=== PATIENT | male | born 1935 | race Caucasian/White ===

== ENCOUNTER 2021-04-13 23:22 | Emergency (ER) | payer MEDICARE, SELFPAY ==
[2021-04-13 23:39] VITALS: BP 130/74; PULSE 86; O2SAT 94
[2021-04-13 23:41] VITALS: BP 118/55; PULSE 79; RESP 16; TEMP 36.6; O2SAT 96; BMI 52.0
--- NOTE | 2021-04-13 23:52 | ED_ITS ---
HPI - Psych General Chief Complaint: Psychiatric Symptoms Stated Complaint: snf SI attempt Time Seen by Provider: 04/13/21 23:42 Source: patient and EMS Mode of arrival: EMS Limitations: no limitations History of Present Illness HPI Narrative: Patient is brought to emergency room from a facility, the staff reports that the patient tried hanging himself. According to the staff, he reported to EMS that the patient was found with his bed blankets wrapped around his neck. 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 Related Data Allergies Allergy/AdvReac Type Severity Reaction Status Date / Time No Known Allergies Allergy Verified 04/13/21 23:58 Review of Systems Review of Systems: Constitutional : Denies fever ENT/Mouth : Chronic swallowing difficulty Eyes: Legally blind Cardiovascular : No Chest Pain, No SOB Respiratory : No cough Gastrointestinal : No vomiting or diarrhea Genitourinary : No dysuria Musculoskeletal : No joint pain Skin : No Skin Lesions, No rash Neuro : No headache Psych : Denies suicidal attempt Heme/Lymph: No lymphadenopathy Endocrine : No Polyuria, No Polydipsia Physical Exam Const: Other: Appearance: Alert. No acute distress Eyes: Legally blind, unable to see ENT: Pharynx normal. Dry oral mucosa Neck: Normal inspection. Neck supple. No lymph nodes noted. No crepitus CVS: Normal heart rate and rhythm. Pulses normal. Normal S1 and S2 Respiratory: No respiratory distress. Breath sounds normal. No Wheezing. No rales Abdomen: Soft and nontender. No rigidity. No distention. Skin: Skin warm and dry. Extremities: Moves all extremities Neuro: Cranial nerves 2-12 grossly intact Course Course Course Narrative: Patient denies suicidal ideation. It is unlikely that the patient should be taking back by the facility without lab [facility] consult pending. Physician observation started at 23:[address] Rodrigues Discharge Plan Discharge Clinical Impression: Behavioral change
--- NOTE | 2021-04-14 00:54 | PC.NURSE ---
Pt transferred from [facility] to [place] [address]. Sitter at bedside. Pt calm/cooperative, Covid swab obtained. Pt requesting water and an additional pillow, provided with such. Pt resting in POC, aware of plan for N eval.
[2021-04-14 01:07] LABS: COVID-19 Test Negative (Negative)
--- NOTE | 2021-04-14 08:56 | PC.NURSE ---
pt woken up for N consult, stating he needs something to drink. Given orange juice and coffee, pt did not like that it was nectar thick. Pt educated that thats what his ordered diet is d/t swallowing issues. Pt then replied why dont you just leave me alone . Drinks at bedside if pt changes his mind.
--- NOTE | 2021-04-14 11:11 | PC.NURSE ---
pt cleared by N. Family and caregiver state they want placement in a new skilled nursing. CM working on case.
--- NOTE | 2021-04-14 11:21 | PHA.MEDREC ---
Pharmacy Consult ? Medication Reconciliation Pharmacy has completed the medication reconciliation. Per Sagar butts, patient has not started testosterone yet. Thanks Jovani Perkins
--- NOTE | 2021-04-14 12:33 | MHC.CM.ED ---
Received notification from Stephany SWENSON, that patient's pearl diver, Nabila is requesting to speak to case management. Met with Nabila and patient. Patient prefers to be called Ulices. Patient was recently at [facility]. He was discharged to [facility] and was brought into the ER due to SI. Patient was seen and cleared by [facility]. Mary from [facility] has agreed to fax the eval to T/W when it is completed. Patient's is requesting referrals to [facility] and [facility] to be closer to home. Referrals made via [employer]. [facility] doesn't have a bed. Karla Porras wants to see the [facility] eval before accepting at [place] or [facility]. This was explained to Nabila. Nabila became angry and stated oh and this is funny to you?! T/W explained there were no way to progress any further with discharge planning until [facility] eval is available. Nabila verbalized understanding. Continue to monitor for d/c needs.
--- NOTE | 2021-04-14 13:26 | PC.NURSE ---
pt resting on stretcher. Nabila (caregiver) left number in case of change in status .
[2021-04-14 16:35] VITALS: BP 99/50; PULSE 72; RESP 18; TEMP 36.4; O2SAT 94
[2021-04-14] MEDS: Furosemide 20 MG TABLET PO (17:23)
--- NOTE | 2021-04-14 17:32 | PC.NURSE ---
pt states he wants to see his . this RN attempted to call family. no answer at this time.
--- NOTE | 2021-04-14 19:28 | PC.NURSE ---
FAMILY MEMBER AT BEDSIDE TALKING WITH ANOTHER 0PATIENTS FAMILY MEMBER IN THE CRUZ BY THE NURSING STATION. THE FAMILY MEMBER OF THIS PATIENT MAKING A COMMENT WHILE THIS RN WAS RECEIVING REPORT DON'T YOU JUST WANT TO SHOT SOMEONE TO GET SOME ATTENTION AROUND HERE ; ALSO STATING TO THE PATIENT IF YOU WERE SHOT WITH A GUN THEY WOULD TREAT YOU BETTER . FAMILY MEMBER TALKING WITH CASE MANAGEMENT, WHILE TALKING WITH CASE MANAGEMENT ABOUT GETTING PATIENT A MEAL TRAY. FAMILY MEMBER JOKINGLY PLACED HER HANDS AROUND HR RECRUITER NECK AND GAVE A LITTLE SHAKE STATING WHAT DO I HAVE TO DO TO GET HIM SOME FOOD AROUND HERE . THIS DATA DEVELOPER MAKING SECURITY AWARE, DISCUSSING ALTERCATION WITH CASE MANAGEMENT.
--- NOTE | 2021-04-14 19:35 | PC.NURSE ---
Family at the bedside stating pt did not eat food this evening. I confirmed with charge nurse that meal did arrive. pt refused dinner. Thicken pudding and a soft sandwich was offered. Will continue to monitor. Plan is to have pt moved to a different room once available.
--- NOTE | 2021-04-14 19:41 | PC.NURSE ---
Discussed with charge nurse, family members continues to speak inappropriately to staff. We are doing our best to accommodate her needs however she being disruptive while attending to other patients needs.
--- NOTE | 2021-04-14 19:54 | PC.NURSE ---
PTS BECOMING VERY INTRUSIVE W/SURROUNDING PATIENT CARE, GOING IN TO PATIENTS ROOMS, ASKING WHY PTS ARE HERE, INTRUDING UPON CARE IN PROGRESS, ASKING PTS WHY THEY ARE HAVING TESTING DONE. THERE HAS BEEN MULTIPLE STATEMENTS MADE RE: DOES SOMEONE HAVE TO BE SHOT TO GET ATTENTION HERE .
--- NOTE | 2021-04-14 19:59 | MHC.CM.ED ---
Late entry for 1630- received a telephone call from Nabila, patient's caregiver at home ([phone]). Nabila was yelling at on the phone, concerned as to why patient is still in the brand and not back at [facility]. Nabila then apologized for speaking in a loud manner. ALEC explained that N needs to fax their assessment to [facility], so CM can upload it to [facility]. Nabila also expressed concerns regarding pt not receiving his scheduled medications and expressed concerns about pt continuing his Sinemet. Requests that ED doctor d/c his parkinson's medication. ALEC explained that I would inform the ED MD of her request, but that they typically do not discontinue medications that have been prescribed by the PCP. Nabila was very upset that the patient is in the hallway. ALEC explained that the ED is very busy and I would work on moving him to a room before my shift ends. Nabila wanted to know what work on it means. ALEC explained that I would speak with the charge nurse about getting a hospital bed for the patient and would try to move him from the hallway tonight. Per Stephany SWENSON, Nabila was calling for updates hourly. ALEC asked Nabila to call CM directly and gave her contact information. Nabila told CM that she would be calling N about the assessment and would give them a piece of her mind. ALEC suggested that that might not be the most helpful way to deal with them. ALEC attempted to call [facility] without success. CM to follow for d/c needs.
--- NOTE | 2021-04-14 20:20 | MHC.CM.ED ---
GUIDO late entry for 1729. Nabila called CM again and asked if we received the fax from [facility]. No fax was received by CM or in the main ED. Nabila quite upset about this. GUIDO explained that I would reach out to [facility]. Also explained that my experience with patients from [facility] that express SI/HI thoughts/behaviors normally are not accepted back to the facility until the next day. Explained that SNF leadership would need to approve his return and that leadership is not in the facility at this time. Nabila quite upset. Nabila stated that she spoke with Po from [facility] and he told her that they gave away his bed at the facility and that they would look into another bed for him tomorrow. Nabila very upset and angry about this. Guido explained that patient's medications have been ordered.CM to follow for d/c needs.-
--- NOTE | 2021-04-14 20:25 | MHC.CM.ED ---
CM late entry for 1744-[facility] fax found in the POD. CM reviewed and uploaded assessment into [facility] and sent to [facility]. CM expects patient to remain in ED overnight. CM will reach out to [facility] in the morning with regards to patient returning to facility. Nabila pleased that fax was found, but not pleased with patient staying overnight. Stating that he has already been here since 1am. Nabila informed to call CM with additional questions or concerns.
--- NOTE | 2021-04-14 20:29 | MHC.CM.ED ---
ALEC late entry for 1830-Nabila at patient's bedside. Questioning if patient ate, why he is still in the brand and if he has voided. Pt was sent pudding and thickened liquid. Pt was fed by Nabila.
--- NOTE | 2021-04-14 20:30 | MHC.CM.ED ---
CM late entry for 191-Nabila upset that patient didn't receive a more substantial dinner. Pt is on soft diet with thickened. Nabila told by Staff that he could have yogurt, additional pudding or tuna sandwich. Nabila then opened the Refrigerator herself. Nabila was told by staff that visitors cannot go into the frig. CM told Nabila that I could get what she needed for the patient, as I was standing there. Nabila agreed to tuna sandwich and some apple sauce. CM removed the food from the refrigerator. Nabila then put her hands around CM neck, gently shaking and saying what do you need to do around her to get some food . CM stepped back and Nabila removed her hands and chuckled. Nabila was not menacing, but was very inappropriate. Charge nurse Gracia notified sewer maintenance supervisor and security of patients inappropriate behaviors. Naibla left for the evening. Security aware not to let Nabila into main ED again tonight. CM to follow for d/c needs.
[2021-04-14 20:53] VITALS: BP 90/47; PULSE 70; RESP 16; TEMP 36.9; O2SAT 93
[2021-04-14] MEDS: Carbidopa/Levodopa 25/100 TABLET 1 TAB PO (21:06)
--- NOTE | 2021-04-14 21:09 | PC.NURSE ---
pt reposition for comfort. pt clean dry. medicated per mar
--- NOTE | 2021-04-14 21:46 | PC.NURSE ---
pt is sleeping at this time. pt is cooperative and calm.
--- NOTE | 2021-04-14 21:53 | PC.NURSE ---
PHONE CALL RECEIVED FROM RETAIL SERVICES PROFESSIONAL, STATING I WANT TO KNOW IF THE STACIE IN THE CRUZ HAS A ROOM YET RN ASKED FOR THIS CALLER TO VERIFY PT NAME D/T MULTIPLE CRUZ WAY SPACES BEING UTILIZED D/T PATIENT VOLUME, AND ACUITY BOTH IN THE ED AND WAITING ROOM. IT WAS EXPLAINED THIS PATIENT WAS STILL IN 22 CRUZ WHEN THIS CALLER BEGAN SCREAMING TO THE POINT OPF THIS RN HAVING TO REMOVE THE PHONE REGISTERED RADIOGRAPHER FROM HER EAR STATING YOU PEOPLE HAVE DONE NOTHING FOR HIM NOT A SINGLE THING ALL DAY, ALL YOU HAVE DONE IS LET HIM LAY THERE THIS RN ATTEMPTED TO EXPLAIN THE CARE THE PATIENT RECEIVED WHEN CALLER STATED I AM ANGRY AND I DON'T WANT TO HEAR WHAT YOU HAVE TO SAY. CALLER WAS ASKED TO LOWER HER VOICE, CALLER HUNG UP ON THIS RN TO END THE CALL.
[2021-04-15 00:21] VITALS: RESP 16
[2021-04-15 05:26] VITALS: BP 115/61; PULSE 78; TEMP 36.7
--- NOTE | 2021-04-15 07:41 | PC.NURSE ---
Assumed care of patient. Pt is sleeping and appears to be resting comfortably at this time. Breakfast tray brought to the bedside, but pt continues to sleep. Security is aware of the visitor policy for this patient.
[2021-04-15] MEDS: Furosemide 20 MG TABLET PO (08:30)
[2021-04-15] MEDS: Carbidopa/Levodopa 25/100 TABLET 1 TAB PO (08:30)
[2021-04-15 08:32] VITALS: BP 119/59; PULSE 82; RESP 18; O2SAT 96
[2021-04-15 08:42] LABS: Appearance Urine CLEAR; Color Urine DK YELLOW; Glucose Urine UA NEG (NEG); Leukocyte Esterase Urine NEG (NEG); Nitrite Urine NEG (NEG); UACC Culture Trigger NO; Urine Blood TRACE (NEG); Urine Ketones 5 MG/DL (NEG); Urine Protein TRACE MG/DL (NEG-TRACE)
[2021-04-15 08:59] LABS: Mucus Urine TRACE /LPF; RBC Urine 0-2 /HPF (0)
[2021-04-15 13:51] VITALS: BP 111/54
--- NOTE | 2021-04-15 14:48 | MHC.CM.ED ---
Addendum entered by Kristel Clayton 04/15/21 15:04: Patient's , Radha made aware via telephone at [phone]. Addendum entered by Kristel Clayton 04/15/21 14:53: Per Aaron, patient can leave at 4pm. [facility] booked. Original Note: Patient remains in ER. [facility] requesting referrals made to facilities closer to patient's home because per JAZ morrissey, they feel patient would do better in a facility closer to home. Referral broadcasted to all facilitiesS within 10 miles of patient's home. No bed offers made today. Spoke with Aaron, liaison of [facility]. He will speak with [facility] and get back to case management. Continue to monitor for d/c needs.
--- NOTE | 2021-04-15 16:50 | PC.NURSE ---
Ambulance is here to bring patient back to [facility]. Report and paperwork given to EMS crew
== END 2021-04-15 16:52 | disposition skilled nursing facility (03) ==
PROVIDERS: Emergency Provider Emergency Medicine
DX: F91.9 Conduct disorder, unspecified (principal); Z20.822 Contact with and (suspected) exposure to COVID-19
CPT/HCPCS: 36415; 81001; 87635; 99285

== ENCOUNTER 2021-04-23 12:15 | Inpatient (IN) | payer MEDICARE, SELFPAY ==
[2021-04-23] VITALS (8 sets, daily range): BP systolic 81–105; BP diastolic 43–62; PULSE 72–120; RESP 18–28; TEMP 36.2–37.1; O2SAT 90–99; BMI 21.2
--- NOTE | ~2021-04-23 | XR_ITS ---
EXAMINATION: XR CHEST CLINICAL INFORMATION: AMS. Weakness COMPARISON: None TECHNIQUE: AP portable view of the chest was obtained. FINDINGS: There is a large partially loculated right pleural effusion with superimposed airspace disease which may be related to atelectasis or pneumonitis. There appears to be densities about the left lung compared to represent calcification of cartilage about the anterior ribs. Heart normal size. No evidence of pulmonary edema. No pneumothorax. XR/XR chest 1V IMPRESSION: Large right pleural effusion with airspace disease.
--- NOTE | ~2021-04-23 | CT_ITS ---
EXAMINATION: CT CHEST WITHOUT CONTRAST CLINICAL INFORMATION: Altered mental status, weakness. Right pleural effusion with airspace disease on chest x-ray. COMPARISON: Chest radiograph 04/23/2021. TECHNIQUE: Multidetector volumetric CT imaging of the chest is performed without intravenous contrast. Axial MIP volume rendering provided. Sagittal and coronal reformatted images were obtained. This CT examination was performed using dose optimization techniques as appropriate, variously including the following: *Automated exposure control *Adjustment of mA and/or kV according to patient size (this includes techniques or standardized protocols for targeted exams where dose is matched to indication/reason for exam; i.e. extremities or head) *Use of iterative reconstruction technique DLP: 519 mGy-cm FINDINGS: LUNGS/PLEURA: There is large right-sided pleural effusion and small to moderate left pleural effusion with associated bilateral lower lobe passive atelectasis. Left lung has an apical spiculated lesion measuring 0.9 x 0.9 x 1.3 cm. There are some scattered geographic groundglass opacities apical left upper lobe. There are accentuated reticular markings right upper lobe which may be mild asymmetric interstitial edema. There are scattered subsegmental atelectasis and some motion artifact. There is no lobar or segmental airspace consolidation or visible mass. The central airways are clear and there is no endobronchial lesion demonstrated. No pneumothorax or pleural thickening. MEDIASTINUM: Heart is borderline enlarged. There are atherosclerotic calcifications of the coronary arteries. There is also calcification in region of the aortic valve. 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 There is no mediastinal mass or adenopathy. No visible hilar mass. No definite pericardial effusion. AXILLA: No lymphadenopathy. UPPER ABDOMEN: Prior cholecystectomy. OSSEOUS STRUCTURES: Multilevel degenerative changes spine. No acute bony abnormality. No destructive process. CT/CT chest wo con IMPRESSION: 1. Large right pleural effusion and small to moderate left pleural effusion with associated lower lobe passive atelectasis. 2. Spiculated lesion left lung apex 0.9 x 0.9 x 1.3 cm. No visible adenopathy. 3. Scattered groundglass opacities apical left upper lobe. Accentuated interstitial markings right upper lobe with subsegmental atelectasis. 4. 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 Calcification in region of the aortic valve and coronary artery atherosclerotic calcifications.
--- NOTE | ~2021-04-23 | CT_ITS ---
EXAMINATION: CT HEAD WITHOUT CONTRAST CLINICAL INFORMATION: Weakness, altered mental status. COMPARISON: None TECHNIQUE: Contiguous axial imaging was performed from the skull base to vertex without intravenous administration of contrast. Additional 2-D coronal and sagittal reformatted images are generated on the CT workstation and uploaded to PACS. This CT examination was performed using dose optimization techniques as appropriate, variously including the following: *Automated exposure control *Adjustment of mA and/or kV according to patient size (this includes techniques or standardized protocols for targeted exams where dose is matched to indication/reason for exam; i.e. extremities or head) *Use of iterative reconstruction technique DLP: 782 mGy-cm FINDINGS: There is no intracranial hemorrhage, hematoma, or extra-axial fluid collection. There are generalized atrophic changes with prominence of the ventricles and prominence of the cortical sulci and fissures and cisterns. There is no subchondral bone resorption. The peguero-white matter differentiation appears symmetric. There is no visible acute territorial infarct or mass lesion. The calvarium appears intact. There is no pneumocephalus or orbital emphysema. The visualized sinuses and middle ears and mastoid air cells show no significant mucosal thickening. There are no air-fluid levels. CT/CT head/brain wo con IMPRESSION: 1. Generalized atrophic changes. 2. No acute intracranial abnormality.
--- NOTE | 2021-04-23 12:28 | ECG_ITS ---
Test Reason : FAILURE TO THRIVE Blood Pressure : / mmHG Vent. Rate : 085 BPM Atrial Rate : 000 BPM P-R Int : 000 ms QRS Dur : 124 ms QT Int : 408 ms P-R-T Axes : 000 050 245 degrees QTc Int : 485 ms Atrial fibrillation Left bundle branch block Abnormal ECG No previous ECGs available Referred By: Cande Okeefe Electronically Signed By:BRENDA CHAVEZ MD
--- NOTE | 2021-04-23 12:35 | ED.WEAKNESS ---
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 It is unclear how long the patient has had a altered mental status. Per report from EMS the patient did have a witnessed seizure at the [facility] this morning which lasted approximately 5 minutes. However when I called and spoke to nursing staff patient had NO witnessed seizure but was noted this morning to be lethargic and confused which they thought was a postictal state. He has had decreased PO intake. Staff tell me that patient has been refusing PO intake and states Im tired. For EMS patient altered with low BP in 80s sytolic. He received 300m NS [employer]. Patient is DNR/DNI but transfer to hospital Of note, patient seen here 04/15/21 he was found trying to choke himself with bed blankets. He was cleared by crisis and sent back to SNF. Related Data Home Medications Medication Instructions Recorded Confirmed carbidopa 25 mg-levodopa 100 mg 1 tab PO BID 04/14/21 04/23/21 tablet furosemide 20 mg tablet 20 mg PO DAILY 04/14/21 04/23/21 testosterone cypionate 200 mg/mL 140 mg IM Q2W 04/14/21 04/23/21 intramuscular oil acetaminophen 325 mg tablet 650 mg PO Q6H PRN 04/23/21 04/23/21 multivitamin 1 tab PO DAILY 04/23/21 04/23/21 Allergies Allergy/AdvReac Type Severity Reaction Status Date / Time No Known Allergies Allergy Verified 04/13/21 23:58 Review of Systems Review of Systems: Yes Unobtainable due to mental status Neurologic: Denies Abnormal speech present PMFSH Past Medical History Source: old records reviewed and nursing notes reviewed Medical History Heart murmur Social History Social History Alcohol intake: unknown Patient Tobacco Use Status: Tobacco use Unknown Advance Directives: Yes Advance Directives on File: Yes Advance Directives Date on File: 04/15/21 Physical Exam Vital Signs: Vital Signs: Last Vital Signs Temp 98.7 F 04/23/21 14:37 Pulse 90 04/23/21 14:37 Resp 18 04/23/21 15:52 BP 96/55 L 04/23/21 15:00 Pulse Ox 97 04/23/21 14:37 Body Mass Index 21.2 Const: General: ill appearing, lethargic, poor hygiene and tired appearing Nutritional Appearance: cachectic Orientation/consciousness: lethargic Limitations: altered mental status HENMT: Other: Tacky mucous membranes Head: Yes normal to inspection Ears: hearing grossly normal bilaterally General nose exam: Normal external nose present Face and sinus: Yes normal facial exam Mouth: Normal oral and palatal mucosa present Throat: Yes posterior oropharynx normal Eyes: General: appearance normal, both eyes and all related structures Pupils: Equal, round and reactive pupils present Neck: Neck: Yes normal visual inspection Chest: Chest palpation & inspection: normal inspection of the chest Resp: Other: Tachypnea with rate of 26 Effort & Inspection: normal respiratory effort Cardio: Rate: regular rate Rhythm: regular rhythm Peripheral pulses: Peripheral pulses 2+ throughout GI: Inspection: Yes normal to inspection Palpation (GI): Soft to palpation and nontender Auscultation: normal bowel sounds Back/Spine/Pelvis: Thoracic/Lumbar Spine: thoracic and lumbar spine normal to inspection Skin: General skin exam: no rashes or lesions noted Neuro: Other: Patient follows simple commands He is oriented to self Moves all 4 extremities Sensation intact General: moves all extremities, normal sensation to monofilament and Unable to assess gait Cranial nerves: Yes Equal, round and reactive pupils present Speech: No Abnormal speech present Gait exam (Neuro): Unable to assess gait Extrem: Other: Delayed cap refill General: Yes normal to inspection and Yes no pedal edema Course Course Course Narrative: This is an 86-year-old male coming from a penitentiary with concern for dehydration, altered mental status, generalized weakness, low blood pressure with refusal to take p.o. for the last 12 days. For EMS the patient was altered, oxygen saturation 88% on room air, blood pressure 80 systolic and received 300 mL of normal saline prior to arrival. On arrival to the emergency department the patient is a lethargic, he does open his eyes to commands and follows some simple commands, oriented to self only. He has no physical complaints. He is tachypneic on arrival, hypotensive with delayed cap refill. Will need labs including blood cultures and lactic acid, COVID screen, chest x-ray, EKG, UA with straight cath, CT head, empiric antibiotics. Patient has underlying history of congestive heart failure with severe aortic stenosis. Will gently hydrate as hypotension is from poor PO intake/dehydration and not from infection Attempting to reach family. Patient has MOLST sent from [facility] and in our computer system which shows DNR/DNI. 1330-spoke to at length. Agrees patient is DNR DNI. We discussed patient is critically ill and she does not want heroic measures. She is okay with continuing antibiotics, fluids. Blood pressure is currently 103/56 after 500 mL of normal saline so no need for central line at this time. Reviewed labs. Patient is hypernatremic likely secondary to decreased p.o. intake at 160. Will discuss with nephrology. Troponin is 3111. No chest pain. EKG shows ST changes lead 2, avf, v2, v3. ? secondary to hypotension vs NSTEMI. Will discuss with cardiology. 1340-spoke to Dr. Mcgraw. Treat as NSTEMI with aspirin and IV heparin. After CT head if negative per [facility] will start heparin. Aspirin ordered. He will order stat echo, follow troponins. 1415-Spoke to Dr Arnold from nephrology. Start d5w @100ml/hr, check NA every 2-3 hrs. Chest x-ray shows a right large pleural effusion however on my independent review of x-ray consider pneumonia with history of aspiration. Patient is saturating in the 90s on several L of oxygen with mild tachypnea with a rate of 22. Will discuss with Radiology. 1440-CT head negative. Ordered heparin gtt. 1455-Spoke to Dr Howard who accepted admission. Requesting CT chest to further evaluate the pleural effusion seen on x-ray. Family was updated ( kristel [phone]). Recent admit to [facility]. Will obtain records. [facility] - [facility] [place] Medical Records Attestation: I reviewed the patient's medical records. Lab Data Attestation: I reviewed the patient's lab results. Result diagrams: 04/23/21 12:54 04/23/21 12:54 Labs: Lab Results 04/23/21 04/23/21 04/23/21 Range/Units 12:54 12:54 12:54 WBC 11.9 H (4.8-10.8) X10*3/uL RBC 4.35 L (4.60-5.80) X10*6/uL Hgb 14.0 (14.0-18.0) g/dl Hct 44.8 (42.0-52.0) % MCV 103.0 H (80.0-98.0) fL MCH 32.2 (27.0-33.0) pg MCHC 31.3 (31.0-36.0) g/dl RDW 13.7 (11.0-16.0) % Plt Count 303 (160-400) X10*3/uL MPV 11.5 (9.4-12.4) fL Immature Gran % (Auto) 0.8 H (0.0-0.4) % Neut % (Auto) 79.8 H (45-73) % Lymph % (Auto) 11.3 L (20-40) % [place] % (Auto) 7.2 (2-11) % Eos % (Auto) 0.7 (0-4) % Baso % (Auto) 0.2 (0-2) % Lymph # (Auto) 1.3 (1.2-4.9) X10*3/uL [place] # (Auto) 0.9 (0.1-1.2) X10*3/uL Eos # (Auto) 0.1 (0.0-0.4) X10*3/uL Baso # (Auto) 0.0 (0.0-0.2) X10*3/uL Abs Immat Gran (auto) 0.09 H (0.00-0.03) X10*3/uL Absolute Neuts (auto) 9.5 H (2.0-8.3) x10*3/uL Absolute Nucleated RBC 0.000 (0.0-0.012) X10*3/uL Nucleated RBC % (auto) 0.0 (0.0-0.2) /100WBC PT 17.3 H (9.9-13.0) SEC INR 1.5 H (0.9-1.1) APTT 36.8 (24.1-38.0) SEC Sodium 160 H* (135-145) mmol/L Potassium 4.1 (3.3-5.1) mmol/L Chloride 124 H (96-108) mmol/L Carbon Dioxide 23 (22-29) mmol/L Anion Gap 17 (12-20) BUN 36 H (9-16) mg/dL Creatinine 1.08 (0.5-1.4) mg/dL Estim Creat Clear Calc 53.0 Estimated GFR > 60 Random Glucose 92 (60-115) mg/dL Lactic Acid (0.5-2.0) mmol/L Calcium 8.4 (8.4-10.2) mg/dL Magnesium 2.4 (1.6-2.6) mg/dL Total Bilirubin 2.9 H (0.0-1.0) mg/dL Direct Bilirubin 1.5 H (0.0-0.5) mg/dL AST 42 H (5-37) U/L ALT 24 (0-40) U/L Alkaline Phosphatase 116 (39-117) U/L Total Creatine Kinase 241 H (38-174) U/L Troponin I High Sens (<3.5-35.0) ng/L Total Protein 5.6 L (6.5-8.0) g/dL Albumin 2.7 L (3.5-5.0) g/dL Urine Color Urine Appearance Urine pH (5.0-8.0) Ur Specific [place] (1.005-1.025) Urine Protein (NEG-TRACE) MG/DL Urine Glucose (UA) (NEG) MG/DL Urine Ketones (NEG) MG/DL Urine Blood (NEG) Urine Nitrite (NEG) Ur Leukocyte Esterase (NEG) Urine RBC (0) /HPF Urine WBC (0-4) /HPF Ur Squamous Epith Cells /LPF Urine Bacteria /LPF Urine Mucus /LPF COVID-19 (DAVID) (Negative) COVID-19 Clin Com 04/23/21 04/23/21 04/23/21 Range/Units 12:54 12:54 12:54 WBC (4.8-10.8) X10*3/uL RBC (4.60-5.80) X10*6/uL Hgb (14.0-18.0) g/dl Hct (42.0-52.0) % MCV (80.0-98.0) fL MCH (27.0-33.0) pg MCHC (31.0-36.0) g/dl RDW (11.0-16.0) % Plt Count (160-400) X10*3/uL MPV (9.4-12.4) fL Immature Gran % (Auto) (0.0-0.4) % Neut % (Auto) (45-73) % Lymph % (Auto) (20-40) % [place] % (Auto) (2-11) % Eos % (Auto) (0-4) % Baso % (Auto) (0-2) % Lymph # (Auto) (1.2-4.9) X10*3/uL [place] # (Auto) (0.1-1.2) X10*3/uL Eos # (Auto) (0.0-0.4) X10*3/uL Baso # (Auto) (0.0-0.2) X10*3/uL Abs Immat Gran (auto) (0.00-0.03) X10*3/uL Absolute Neuts (auto) (2.0-8.3) x10*3/uL Absolute Nucleated RBC (0.0-0.012) X10*3/uL Nucleated RBC % (auto) (0.0-0.2) /100WBC PT (9.9-13.0) SEC INR (0.9-1.1) APTT (24.1-38.0) SEC Sodium (135-145) mmol/L Potassium (3.3-5.1) mmol/L Chloride (96-108) mmol/L Carbon Dioxide (22-29) mmol/L Anion Gap (12-20) BUN (9-16) mg/dL Creatinine (0.5-1.4) mg/dL Estim Creat Clear Calc Estimated GFR Random Glucose (60-115) mg/dL Lactic Acid 2.5 H* (0.5-2.0) mmol/L Calcium (8.4-10.2) mg/dL Magnesium (1.6-2.6) mg/dL Total Bilirubin (0.0-1.0) mg/dL Direct Bilirubin (0.0-0.5) mg/dL AST (5-37) U/L ALT (0-40) U/L Alkaline Phosphatase (39-117) U/L Total Creatine Kinase (38-174) U/L Troponin I High Sens 3111.0 H* (<3.5-35.0) ng/L Total Protein (6.5-8.0) g/dL Albumin (3.5-5.0) g/dL Urine Color Urine Appearance Urine pH (5.0-8.0) Ur Specific [place] (1.005-1.025) Urine Protein (NEG-TRACE) MG/DL Urine Glucose (UA) (NEG) MG/DL Urine Ketones (NEG) MG/DL Urine Blood (NEG) Urine Nitrite (NEG) Ur Leukocyte Esterase (NEG) Urine RBC (0) /HPF Urine WBC (0-4) /HPF Ur Squamous Epith Cells /LPF Urine Bacteria /LPF Urine Mucus /LPF COVID-19 (DAVID) Negative (Negative) COVID-19 Clin Com See Note 04/23/21 Range/Units 13:05 WBC (4.8-10.8) X10*3/uL RBC (4.60-5.80) X10*6/uL Hgb (14.0-18.0) g/dl Hct (42.0-52.0) % MCV (80.0-98.0) fL MCH (27.0-33.0) pg MCHC (31.0-36.0) g/dl RDW (11.0-16.0) % Plt Count (160-400) X10*3/uL MPV (9.4-12.4) fL Immature Gran % (Auto) (0.0-0.4) % Neut % (Auto) (45-73) % Lymph % (Auto) (20-40) % [place] % (Auto) (2-11) % Eos % (Auto) (0-4) % Baso % (Auto) (0-2) % Lymph # (Auto) (1.2-4.9) X10*3/uL [place] # (Auto) (0.1-1.2) X10*3/uL Eos # (Auto) (0.0-0.4) X10*3/uL Baso # (Auto) (0.0-0.2) X10*3/uL Abs Immat Gran (auto) (0.00-0.03) X10*3/uL Absolute Neuts (auto) (2.0-8.3) x10*3/uL Absolute Nucleated RBC (0.0-0.012) X10*3/uL Nucleated RBC % (auto) (0.0-0.2) /100WBC PT (9.9-13.0) SEC INR (0.9-1.1) APTT (24.1-38.0) SEC Sodium (135-145) mmol/L Potassium (3.3-5.1) mmol/L Chloride (96-108) mmol/L Carbon Dioxide (22-29) mmol/L Anion Gap (12-20) BUN (9-16) mg/dL Creatinine (0.5-1.4) mg/dL Estim Creat Clear Calc Estimated GFR Random Glucose (60-115) mg/dL Lactic Acid (0.5-2.0) mmol/L Calcium (8.4-10.2) mg/dL Magnesium (1.6-2.6) mg/dL Total Bilirubin (0.0-1.0) mg/dL Direct Bilirubin (0.0-0.5) mg/dL AST (5-37) U/L ALT (0-40) U/L Alkaline Phosphatase (39-117) U/L Total Creatine Kinase (38-174) U/L Troponin I High Sens (<3.5-35.0) ng/L Total Protein (6.5-8.0) g/dL Albumin (3.5-5.0) g/dL Urine Color YELLOW Urine Appearance HAZY Urine pH 6.0 (5.0-8.0) Ur Specific [place] 1.015 (1.005-1.025) Urine Protein 1+ H (NEG-TRACE) MG/DL Urine Glucose (UA) 100 H (NEG) MG/DL Urine Ketones 5 (NEG) MG/DL Urine Blood 3+ H (NEG) Urine Nitrite NEG (NEG) Ur Leukocyte Esterase NEG (NEG) Urine RBC 50-75 H (0) /HPF Urine WBC 0-2 (0-4) /HPF Ur Squamous Epith Cells NONE /LPF Urine Bacteria NONE /LPF Urine Mucus 2+ /LPF COVID-19 (DAVID) (Negative) COVID-19 Clin Com Imaging Data Chest x-ray: Attestation: I personally reviewed and interpreted this imaging study as follows: Radiologist's impression: FINDINGS: There is a large partially loculated right pleural effusion with superimposed airspace disease which may be related to atelectasis or pneumonitis. There appears to be densities about the left lung compared to represent calcification of cartilage about the anterior ribs. Heart normal size. No evidence of pulmonary edema. No pneumothorax. XR/XR chest 1V IMPRESSION: Large right pleural effusion with airspace disease. ? CT scan - head: Attestation: I personally reviewed and interpreted this imaging study as follows: Radiologist's impression: FINDINGS: There is no intracranial hemorrhage, hematoma, or extra-axial fluid collection.? There are generalized atrophic changes with prominence of the ventricles and prominence of the cortical sulci and fissures and cisterns. There is no subchondral bone resorption. The peguero-white matter differentiation appears symmetric.? There is no visible acute territorial infarct or mass lesion. The calvarium appears intact. There is no pneumocephalus or orbital emphysema.? The visualized sinuses and middle ears and mastoid air cells show no significant mucosal thickening. There are no air-fluid levels. CT/CT head/brain wo con IMPRESSION: ? 1. Generalized atrophic changes. 2. No acute intracranial abnormality. CT scan - chest: Attestation: I personally reviewed and interpreted this imaging study as follows: Radiologist's impression: [address] [address] [address] Scan Report Signed Patient: Yamil Calvert MR#: [id number] : 1935 Acct:[id number] Age/Sex: 86 / M ADM Date: 04/23/21 Loc: HO.ED Attending Dr: Ordering Physician: Cande Okeefe NP Date of Service: 04/23/21 Procedure(s): CT chest wo con Accession Number(s): [id number] cc: SaryCande NP~ EXAMINATION: CT CHEST WITHOUT CONTRAST CLINICAL INFORMATION: Altered mental status, weakness. Right pleural effusion with airspace disease on chest x-ray.? COMPARISON: Chest radiograph 04/23/2021.? TECHNIQUE: Multidetector volumetric CT imaging of the chest is performed without intravenous contrast. Axial MIP volume rendering provided. Sagittal and coronal reformatted images were obtained.? This CT examination was performed using dose optimization techniques as appropriate, variously including the following: *Automated exposure control *Adjustment of mA and/or kV according to patient size (this includes techniques or standardized protocols for targeted exams where dose is matched to indication/reason for exam; i.e. extremities or head) *Use of iterative reconstruction technique DLP: 519 mGy-cm FINDINGS: LUNGS/PLEURA: There is large right-sided pleural effusion and small to moderate left pleural effusion with associated bilateral lower lobe passive atelectasis. Left lung has an apical spiculated lesion measuring 0.9 x 0.9 x 1.3 cm. There are some scattered geographic groundglass opacities apical left upper lobe. There are accentuated reticular markings right upper lobe which may be mild asymmetric interstitial edema. There are scattered subsegmental atelectasis and some motion artifact. There is no lobar or segmental airspace consolidation or visible mass. The central airways are clear and there is no endobronchial lesion demonstrated. No pneumothorax or pleural thickening.? MEDIASTINUM: Heart is borderline enlarged. There are atherosclerotic calcifications of the coronary arteries. There is also calcification in region of the aortic valve. 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 There is no mediastinal mass or adenopathy. No visible hilar mass. No definite pericardial effusion. AXILLA: No lymphadenopathy.? UPPER ABDOMEN: Prior cholecystectomy.? OSSEOUS STRUCTURES: Multilevel degenerative changes spine. No acute bony abnormality. No destructive process.? CT/CT chest wo con IMPRESSION: ? 1. Large right pleural effusion and small to moderate left pleural effusion with associated lower lobe passive atelectasis. 2. Spiculated lesion left lung apex 0.9 x 0.9 x 1.3 cm. No visible adenopathy. 3. Scattered groundglass opacities apical left upper lobe. Accentuated interstitial markings right upper lobe with subsegmental atelectasis. 4. 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 Calcification in region of the aortic valve and coronary artery atherosclerotic calcifications. ECG Data Attestation: I personally reviewed and interpreted this ECG as follows: Procedures EJ/Peripheral Line Arm R: Time Out Performed: No Skin Cleansed in Sterile Fashion: Yes Size (gauge): 18 IV Secured and Dressing Applied: Yes Patient Tolerated Procedure: well Critical Care Time Critical Care Time Critical Care Time: Yes Total Critical Care Time: 90 Attestation: Lengthy discussion with the patients Kristel and family friend Shirin about patient and plan of care Discussed with Nephrology, Cardiology, Medicine team, review of records from other facilities, discussion with snf staff Management of hypoxia, hypotension Discharge Plan Discharge Clinical Impression: Acute hypernatremia, Acute non-ST elevation myocardial infarction (NSTEMI), Pleural effusion, Dehydration Patient Disposition: Admitted As Inpatient
--- NOTE | 2021-04-23 13:01 | PHA.MEDREC ---
Pharmacy Consult ? Medication Reconciliation Pharmacy has completed the medication reconciliation. There are no remarkable issues for provider's attention. Patient came from [facility] with a medication list. Sandra Noyola, LevD
[2021-04-23 13:04] LABS: MANUAL DIFF FLAG NO
[2021-04-23 13:06] LABS: Basophils Percent Auto 0.2 % (0-2); Eosinophils Absolute Auto 0.1 X10*3/uL (0.0-0.4); Eosinophils Percent Auto 0.7 % (0-4); Hematocrit 44.8 % (42.0-52.0); Imm Gran Abs Auto 0.09 X10*3/uL (0.00-0.03); Imm Gran Pct Auto 0.8 % (0.0-0.4); Lymphocytes Absolute Auto 1.3 X10*3/uL (1.2-4.9); Lymphocytes Percent Auto 11.3 % (20-40); Mean Corpuscular HGB Conc 31.3 g/dl (31.0-36.0); Mean Corpuscular Hemoglobin 32.2 pg (27.0-33.0); Mean Platelet Volume 11.5 fL (9.4-12.4); Monocytes Absolute Auto 0.9 X10*3/uL (0.1-1.2); Monocytes Percent Auto 7.2 % (2-11); Neutrophils Absolute Auto 9.5 x10*3/uL (2.0-8.3); Neutrophils Percent Auto 79.8 % (45-73); Platelet Count 303 X10*3/uL (160-400); Red Blood Count 4.35 X10*6/uL (4.60-5.80); Red Cell Distribution Width 13.7 % (11.0-16.0); White Blood Count 11.9 X10*3/uL (4.8-10.8)
[2021-04-23 13:12] LABS: INTERNATIONAL NORM RATIO 1.5 (0.9-1.1); Prothrombin Time 17.3 SEC (9.9-13.0)
[2021-04-23 13:20] LABS: Appearance Urine HAZY; Color Urine YELLOW; Glucose Urine UA 100 MG/DL (NEG); Leukocyte Esterase Urine NEG (NEG); Nitrite Urine NEG (NEG); Specific Gravity - Urine 1.015 (1.005-1.025); UACC Culture Trigger NO; Urine Blood 3+ (NEG); Urine Ketones 5 MG/DL (NEG); Urine Protein 1+ MG/DL (NEG-TRACE)
[2021-04-23] MEDS: cefTRIAXone sodium 1 GM in 0.9 % Sodium Chloride 50 ML IV (13:21)
[2021-04-23] MEDS: 0.9 % Sodium Chloride 1,000 ML 999 ML IV (13:21)
[2021-04-23 13:24] LABS: COVID-19 Test Negative (Negative)
[2021-04-23 13:27] LABS: Alanine Aminotransferase 24 U/L (0-40); Albumin Level 2.7 g/dL (3.5-5.0); Alkaline Phosphatase 116 U/L (39-117); Anion Gap 17 (12-20); Aspartate Amino Transferase 42 U/L (5-37); Bilirubin Direct 1.5 mg/dL (0.0-0.5); Bilirubin Total 2.9 mg/dL (0.0-1.0); Blood Urea Nitrogen 36 mg/dL (9-16); Calcium 8.4 mg/dL (8.4-10.2); Carbon Dioxide 23 mmol/L (22-29); Chloride 124 mmol/L (96-108); Estimated Glomerular Filt Rate > 60; Glucose Random 92 mg/dL (60-115); Magnesium 2.4 mg/dL (1.6-2.6); Potassium 4.1 mmol/L (3.3-5.1); Sodium 160 mmol/L (135-145); Total Protein 5.6 g/dL (6.5-8.0)
[2021-04-23 13:28] LABS: Lactic Acid 2.5 mmol/L (0.5-2.0)
[2021-04-23 13:32] LABS: Mucus Urine 2+ /LPF; RBC Urine 50-75 /HPF (0); WBC Urine 0-2 /HPF (0-4)
[2021-04-23 14:04] LABS: Partial Thromboplastin Time 36.8 SEC (24.1-38.0)
[2021-04-23] MEDS: Dextrose 5 % 1,000 ML 100 ML IVCONT (14:34)
[2021-04-23] MEDS: Aspirin 300 MG SUPP.RECT PR (14:34)
[2021-04-23] MEDS: Heparin Sodium,Porcine/1/2NS 25,000 UNIT/250 ML IV.SOLN 9 UNIT IVCONT (14:57)
[2021-04-23] MEDS: vancomycin HCL 1,000 MG in 0.9 % Sodium Chloride 250 ML 270 MG IV (14:58)
[2021-04-23 15:07] LABS: Reflex Lactate? Lactic Acid Added
--- NOTE | 2021-04-23 15:51 | PC.NURSE ---
Spoke with . confirmed she would like to make patient comfort care.
--- NOTE | 2021-04-23 15:54 | PC.NURSE ---
LEELA FELICIANO SAID NOT TO GET LABS PATIENT GOING ON [facility] .
--- NOTE | 2021-04-23 16:26 | PM.IMHP ---
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 He was last hospitalized at [facility] for CHF, delirium and deconditioning from April 05 to . He was to the ED with altered mental status of unclear circumstance but probaly days. Record shows that patient suffered an episode of tonic clonic seizure lasting aproximately [address] [facility] and had been lethargic. He was noted to have SBP in the 80s. Work up here in ED showed severe Hypernatremia sodium of 160s, elevated troponin I 3111. CXR shows loculated pleural effusion. Patient is completely unsresponsive, very ill apearing, emaciated. I spoke and discuss clinicaly issues, and goal of care with patient's Radha at [phone] and she wants comfort care, stating this is what patient would have wanted. LEELA Georges verified the conversation. Review of Systems Review of Systems: Yes Unobtainable due to mental status [facility] Medical History Heart murmur Pertinent family history: Unable to confirm from patient or Social History Alcohol intake: unknown Patient Tobacco Use Status: Tobacco use Unknown Advance Directives: Yes Advance Directives on File: Yes Advance Directives Date on File: 04/15/21 service: No Current occupational status: retired Meds Allergies Allergy/AdvReac Type Severity Reaction Status Date / Time No Known Allergies Allergy Verified 04/13/21 23:58 Active Medications: Current Medications Pharmacy Consult (Consult Rx Perform Med Rec) 1 each MISCELLANE ONCE PRN PRN Reason: Consult order Home Medications Medication Instructions Recorded Confirmed Last Taken Type carbidopa 25 mg-levodopa 100 mg 1 tab PO BID 04/14/21 04/23/21 04/14/21 History tablet furosemide 20 mg tablet 20 mg PO DAILY 04/14/21 04/23/21 04/14/21 History testosterone cypionate 200 mg/mL 140 mg IM Q2W 04/14/21 04/23/2121 History intramuscular oil acetaminophen 325 mg tablet 650 mg PO Q6H PRN 04/23/21 04/23/21 Unknown History multivitamin 1 tab PO DAILY 04/23/21 04/23/21 Unknown History Physical Exam Vital Signs and Narrative: Vital Signs: Last Vital Signs Temp 98.7 F 04/23/21 14:37 Pulse 90 04/23/21 14:37 Resp 18 04/23/21 15:52 BP 96/55 L 04/23/21 15:00 Pulse Ox 97 04/23/21 14:37 Body Mass Index 21.2 Const: Other: Constitutional: unresponsive, very ill appearing, emaciated Mental Status: Not oriented Eyes: eyes rolled up Ear, Nose and Throat: Oropharynx clear, mucous membranes dry. Ears and nose without eformities. Trachea midline. Respiratory: breahing easy, bilateral rhonchi Cardiovascular: S1 S2 regular, systolic murmur grade 4 Gastrointestinal: Abdomen soft, +bowel sound Neurologic: Neuro exam is limitted as patient not able to follow commands Skin: dry, no rash Musculoskeletal: No cyanosis or clubbing. Psychiatric: unable to assess. Results Labs CBC and Chem 7: 04/23/21 12:54 04/23/21 12:54 Labs: Laboratory Results - last 24 hr 04/23/21 04/23/21 04/23/21 12:54 12:54 12:54 MCV 103.0 H MCH 32.2 MCHC 31.3 RDW 13.7 Plt Count 303 MPV 11.5 Immature Gran % (Auto) 0.8 H Neut % (Auto) 79.8 H Lymph % (Auto) 11.3 L [place] % (Auto) 7.2 Eos % (Auto) 0.7 Baso % (Auto) 0.2 Lymph # (Auto) 1.3 [place] # (Auto) 0.9 Eos # (Auto) 0.1 Baso # (Auto) 0.0 Abs Immat Gran (auto) 0.09 H Absolute Neuts (auto) 9.5 H Absolute Nucleated RBC 0.000 Nucleated RBC % (auto) 0.0 PT 17.3 H INR 1.5 H APTT 36.8 Anion Gap 17 Estim Creat Clear Calc 53.0 Estimated GFR > 60 Random Glucose 92 Lactic Acid Calcium 8.4 Magnesium 2.4 Total Bilirubin 2.9 H Direct Bilirubin 1.5 H AST 42 H ALT 24 Alkaline Phosphatase 116 Total Creatine Kinase 241 H Troponin I High Sens Total Protein 5.6 L Albumin 2.7 L Urine Color Urine Appearance Urine pH Ur Specific [place] Urine Protein Urine Glucose (UA) Urine Ketones Urine Blood Urine Nitrite Ur Leukocyte Esterase Urine RBC Urine WBC Ur Squamous Epith Cells Urine Bacteria Urine Mucus COVID-19 (DAVID) COVID-19 Clin Com 04/23/21 04/23/21 04/23/21 12:54 12:54 12:54 MCV MCH MCHC RDW Plt Count MPV Immature Gran % (Auto) Neut % (Auto) Lymph % (Auto) [place] % (Auto) Eos % (Auto) Baso % (Auto) Lymph # (Auto) [place] # (Auto) Eos # (Auto) Baso # (Auto) Abs Immat Gran (auto) Absolute Neuts (auto) Absolute Nucleated RBC Nucleated RBC % (auto) PT INR APTT Anion Gap Estim Creat Clear Calc Estimated GFR Random Glucose Lactic Acid 2.5 H* Calcium Magnesium Total Bilirubin Direct Bilirubin AST ALT Alkaline Phosphatase Total Creatine Kinase Troponin I High Sens 3111.0 H* Total Protein Albumin Urine Color Urine Appearance Urine pH Ur Specific [place] Urine Protein Urine Glucose (UA) Urine Ketones Urine Blood Urine Nitrite Ur Leukocyte Esterase Urine RBC Urine WBC Ur Squamous Epith Cells Urine Bacteria Urine Mucus COVID-19 (DAVID) Negative COVID-19 Clin Com See Note 04/23/21 13:05 MCV MCH MCHC RDW Plt Count MPV Immature Gran % (Auto) Neut % (Auto) Lymph % (Auto) [place] % (Auto) Eos % (Auto) Baso % (Auto) Lymph # (Auto) [place] # (Auto) Eos # (Auto) Baso # (Auto) Abs Immat Gran (auto) Absolute Neuts (auto) Absolute Nucleated RBC Nucleated RBC % (auto) PT INR APTT Anion Gap Estim Creat Clear Calc Estimated GFR Random Glucose Lactic Acid Calcium Magnesium Total Bilirubin Direct Bilirubin AST ALT Alkaline Phosphatase Total Creatine Kinase Troponin I High Sens Total Protein Albumin Urine Color YELLOW Urine Appearance HAZY Urine pH 6.0 Ur Specific [place] 1.015 Urine Protein 1+ H Urine Glucose (UA) 100 H Urine Ketones 5 Urine Blood 3+ H Urine Nitrite NEG Ur Leukocyte Esterase NEG Urine RBC 50-75 H Urine WBC 0-2 Ur Squamous Epith Cells NONE Urine Bacteria NONE Urine Mucus 2+ COVID-19 (DAVID) COVID-19 Clin Com Imaging Radiologist's Impressions: Impressions Chest X-Ray 04/23/21 12:29 IMPRESSION: Large right pleural effusion with airspace disease. Head CT 04/23/21 12:29 IMPRESSION: 1. Generalized atrophic changes. 2. No acute intracranial abnormality. Chest CT 04/23/21 14:50 IMPRESSION: 1. Large right pleural effusion and small to moderate left pleural effusion with associated lower lobe passive atelectasis. 2. Spiculated lesion left lung apex 0.9 x 0.9 x 1.3 cm. No visible adenopathy. 3. Scattered groundglass opacities apical left upper lobe. Accentuated interstitial markings right upper lobe with subsegmental atelectasis. 4. 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 Calcification in region of the aortic valve and coronary artery atherosclerotic calcifications. Assessment and Plan (1) Acute non-ST elevation myocardial infarction (NSTEMI): Status: Acute (2) Acute hypernatremia: Status: Acute (3) Pleural effusion: Status: Acute (4) Dehydration: Status: Acute 86 year male with with dilated cardiomyopathy (EF 55), mitral regurgitation, severe aortic stenosis, aftrial flutter non anticoagulated, blindness, h/o pituatrary tumor resection, Parkinson, dysphasia, heart failure. He was last hospitalized at [facility] for CHF, delirium and deconditioning from April 05 to . He was sent to the ED with altered mental status of unclear circumstance but probably days. Record shows that patient suffered an episode of tonic clonic seizure lasting approximately [address] [facility] and had been lethargic. He was noted to have SBP in the 80s. Work up here in ED showed severe Hypernatremia sodium of 160s, elevated troponin I 3111. Patient is completely unresponsive, very ill appearing, emaciated. I spoke and discuss clinically issues, and goal of care with patient's Radha at [phone] and she wants comfort care, stating this is what patient would have wanted. LEELA Georges verified the conversation. He is admitted for severe dehydration, hypErnatremia, NSTEMI, metabolic encephalopathy, Dysphagia, unresponsive. He will be treated Per Comfort care protocol and therefore will stop all meds, except morphine, ativan for comfort, no aritifical nutrition, and is DNR/DNI as discussed with over the phone and confirmed by LEELA Georges.. does not want patient to return to [facility]. Quality Stroke Does the patient have a stroke diagnosis?: No VTE Prior VTE?: No VTE Risk Level:: Medical - low VTE Device Contraindication: Treatment Not Indicated VTE Drug Contraindication: Treatment Not Indicated
[2021-04-23] MEDS: Scopolamine 1.5 MG PATCH.TD.3 EAR-BEHIND (17:37)
[2021-04-23] MEDS: Morphine Sulfate/NS 100 MG/100 ML PLAST..BAG IVCONT (19:00)
--- NOTE | 2021-04-23 20:33 | MHC.CM.PN ---
CM spoke with patient's /HCP Radha Yancey Dolorescorina, as pt is unresponsive. IMM reviewed and signed. Copy left at bedside. Naye given update on pt condition, as he remains unresponsive. 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 Stressed to Naye that her is comfortable, does not have any pain and appears peaceful. Naye asked CM how long will it take . CM stressed that everyone goes through the dying stages at their own pace. Encouraged Naye that she can visit at any time. Naye does not have transportation at this time and feels that if he is unresponsive, then he isn't missing her. aNye given CM telephone number. Pt was living at home until his admission to [facility] on 04/05. Pt was D/C to [facility] on 04/08 and came to [facility] on 04/14 for SI/AMS. Pt returned to [facility] on 04/15/. Pt is bed-bound and unresponsive. Per Dr. Ren, is requesting TRUCK JUMPER and admission and does not want pt to return to SNF. Pt appears to be in the process of dying. CM to follow for d/c needs.
--- NOTE | 2021-04-23 21:08 | PC.NURSE ---
patient changed, cleaned, and repositioned Q 2 hours. Resting safely.
[2021-04-24] MEDS: 0.9 % Sodium Chloride Flush 3 ML SYRINGE IVFLUSH ×2 (00:22→09:19)
[2021-04-24 00:25] VITALS: BP 93/53; PULSE 88; RESP 20; O2SAT 94
[2021-04-24 00:42] VITALS: BP 93/53; PULSE 57; RESP 20; TEMP 36.7; O2SAT 95
[2021-04-24 07:41] VITALS: BP 74/50; PULSE 94; RESP 12; TEMP 36.2; O2SAT 99
--- NOTE | 2021-04-24 10:45 | P.EN_ITS ---
Event Note Date of Service: 04/24/21 Event Note: Patient seen and examined. He is unresponsive, comfortable. Vitals reviewed: BP 74/50 P94 Exam: Unresponsive, breathing easy, Problems: (1) Acute non-ST elevation myocardial infarction (NSTEMI): ?Status:?Acute (2) Acute hypernatremia: ?Status:?Acute (3) Pleural effusion: ?Status:?Acute (4) Dehydration: ?Status:?Acute Assessment/plan: ?86 year male with with dilated cardiomyopathy (EF 55), mitral regurgitation, severe aortic stenosis, aftrial flutter non anticoagulated, blindness,? h/o pituatrary tumor resection, Parkinson, dysphasia, heart failure. He was last hospitalized at [facility] for CHF, delirium and deconditioning from April 05 to . He was sent to the ED with altered mental status of unclear circumstance but probably days. Record shows that patient suffered an episode of tonic clonic seizure lasting approximately 5 at SNF at [facility] and had been lethargic.? He was noted to have SBP in the 80s. Work up here in ED showed severe Hypernatremia sodium of 160s, elevated troponin I 3111. Patient is completely unresponsive, very ill appearing, emaciated.? I spoke and discuss clinically issues, and goal of care with patient's Merline at [phone] and she wants comfort care, stating this is what patient would have wanted. LEELA Georges verified the conversation. -continue comfort care, morphine by SUPERVISORY TRAINING SPECIALIST, Ativan p.r.n., scopolamine patch, he does not appear to be hospice GI IP candidate, however will obtain hospice consult to be certain.
--- NOTE | 2021-04-24 15:27 | PM.DDS ---
Discharge Sum: Prov Provider Primary care physician: Unknown Physician Discharge Sum: Diag Contributing Factors (1) Acute non-ST elevation myocardial infarction (NSTEMI): (2) Acute hypernatremia: (3) Pleural effusion: (4) Dehydration: Discharge Sum: Summary Date and Time Date of admission: 04/23/21 16:52 Summary Details: 86 year male with with dilated cardiomyopathy (EF 55), mitral regurgitation, severe aortic stenosis, aftrial flutter non anticoagulated, blindness,? h/o pituatrary tumor resection, Parkinson, dysphasia, heart failure. He was last hospitalized at [facility] for CHF, delirium and deconditioning from April 05 to . He was sent to the ED with altered mental status of unclear circumstance but probably days. Record shows that patient suffered an episode of tonic clonic seizure lasting approximately 5 at SNF at [facility] and had been lethargic.? He was noted to have SBP in the 80s. Work up here in ED showed severe Hypernatremia sodium of 160s, elevated troponin I 3111. Patient is completely unresponsive, very ill appearing, emaciated and suffered from protein calory malnutrition.? I spoke and discuss clinically issues, and goal of care with patient's Merline at [phone] and she wants comfort care, stating this is what patient would have wanted. LEELA Georges verified the conversation. Patient was treted with IV morphine and ativan for comofort and the following day at 7.25 pm on 04/24/21. He was pronounced by Dr. Louis Final diagnoses: NSTEMI Metabolic encephalopaty Hypernatremia Seizures [place] calory malnutrition of moderate degree Other diagnoses: cardiomyopathy (EF 55) with unspecified heart failure, mitral regurgitation, severe aortic stenosis, aftrial flutter non anticoagulated, blindness,? h/o pituatrary tumor resection, Parkinson, dysphasia, Additional Data Attending physician: Long Ren MD
[2021-04-24 16:00] VITALS: BP 43/29; PULSE 91; RESP 9; TEMP 37; O2SAT 99
--- NOTE | 2021-04-24 19:35 | P.EN_ITS ---
Event Note Date of Service: 05/03/21 Event Note: note: Around 7:20 p.m. on 04/24/2021 RN called me mentioning patient . I went in checked on the patient no coronary reflex, pupils are fixed and not reactive, patient not responding to verbal command; patient pronounced at 7:25 p.m. on 04/24/2021. Brieflyhistory: patient with a history of Parkinson disease, dysphagia, severe aortic stenosis, atrial flutter presented from the detention with lethargy drowsiness seizure; on presentation noted to be hypertensive, hypernatremia, unresponsive; the admitting team discussed with the family about the patient's poor prognosis and subsequently decided on comfort measures care.
--- NOTE | 2021-04-24 19:35 | PC.NURSE ---
Unable to waste 51.0ml of morphine/NS in pyxis r/t not being available in pyxis to waste. Original med hung in emergency department. 51.0 ml of morphine wasted w second RN Madison Mcgovern. Paper progress note placed in patients chart with nurse signatures.
--- NOTE | 2021-04-24 19:55 | PC.NURSE ---
Organ bank notified. Declined donation at this time Ref # [id number]
== END 2021-04-24 21:08 | disposition expired | DRG 951 ==
LOC: HO.ED 14:45 → HO.EDOVER 17:11 → HO.IMC 23:10
PROVIDERS: Nurse Practitioner Family; Admitting Provider Internal Medicine; Emergency Provider Emergency Medicine Emergency Medical Services; Visit Provider Internal Medicine
DX: Z51.5 Encounter for palliative care (principal); I21.4 Non-ST elevation (NSTEMI) myocardial infarction; G93.41 Metabolic encephalopathy; E87.0 Hyperosmolality and hypernatremia; I42.0 Dilated cardiomyopathy; I48.92 Unspecified atrial flutter; J90 Pleural effusion, not elsewhere classified; E44.0 Moderate protein-calorie malnutrition; I35.0 Nonrheumatic aortic (valve) stenosis; H54.7 Unspecified visual loss; Z68.21 Body mass index [BMI] 21.0-21.9, adult; G20 Parkinson's disease; E86.0 Dehydration; Z20.822 Contact with and (suspected) exposure to COVID-19; Z79.899 Other long term (current) drug therapy; Z66 Do not resuscitate
CPT/HCPCS: 36415; 70450; 71045; 71250; 80048; 80076; 81001; 82550; 83605; 83735; 84484; 85025; 85610; 85730; 87040; 87635; 93005; 96361; 96365; 96366; 96367; 99284; 99291; 99292; J0696; J2270; J3370